=== PATIENT | male | born 1990 | race Caucasian/White ===

== ENCOUNTER 2019-08-03 22:11 | Emergency (ER) | payer BC, MEDICAID ==
--- NOTE | 2019-08-03 22:39 | EDM.PDOC ---
ED HPI GENERAL MEDICAL PROBLEM - General Stated Complaint: LEFT THUMB Time Seen by Provider: 08/03/19 22:15 Source of Information: Reports: Patient History Limitations: Reports: No Limitations - History of Present Illness INITIAL COMMENTS - FREE TEXT/NARRATIVE: pt c/o pain and swelling at left thumb, states he jammed his finger with his shot gun about 2 weeks ago and for the past 5 days has been notining pain and swelling at tip of his thump , pt denies any fever or chills or any other associated sx or concerns. ED ROS GENERAL - Review of Systems Review Of Systems: See Below Constitutional: Reports: No Symptoms Respiratory: Reports: No Symptoms Cardiovascular: Reports: No Symptoms GI/Abdominal: Reports: No Symptoms ED EXAM, GENERAL - Physical Exam Exam: See Below Exam Limited By: No Limitations General Appearance: Alert, No Apparent Distress Respiratory/Chest: No Respiratory Distress, Lungs Clear Cardiovascular: Normal Peripheral Pulses, Regular Rate, Rhythm, No Murmur Extremities: Other (pt has induration / tenderness and swelling at mary side of the tip of left thump . ) Course - Vital Signs Text/Narrative:: pt has cellulitis at his left thump, was given 1 gm of Rocephin IM here and started on augmenting x 10 days, pt to apply warm compresses at affected area and follow with PCP in 2 days for re-check. Departure - Departure Time of Disposition: 22:37 Disposition: Home, Self-Care 01 Clinical Impression: Cellulitis of finger of left hand - Discharge Information Referrals: Delvis Conway MD [Primary Care Provider] - Additional Instructions: apply warm compresses to affected area, complete antibiotic course and follow with your physician in 2 days for re-check.
[2019-08-03] MEDS: cefTRIAXone 1 GM Vial IM ONE (22:47)
== END 2019-08-03 23:05 | disposition home or self-care (01) ==
LOC: FB.ED 22:11
DX: L03.012 Cellulitis of left finger (principal)
CPT/HCPCS: 96372; 99283; J0696

== ENCOUNTER 2023-02-28 15:43 | Emergency (ER) | payer OTHER ==
[2023-02-28] MEDS ORDERED: Acetaminophen/HYDROcodone 325-5 MG Tab PO ONE (15:44)
[2023-02-28] MEDS ORDERED: HYDROmorphone 2 MG/ML SDV IM ONE ×3 (15:53→17:40)
== END 2023-02-28 18:56 | disposition home or self-care (01) ==
LOC: FB.ED 15:43
DX: S42.152A Displaced fracture of neck of scapula, left shoulder, initial encounter for closed fracture (principal); S22.42XA Multiple fractures of ribs, left side, initial encounter for closed fracture; S27.0XXA Traumatic pneumothorax, initial encounter; S27.321A Contusion of lung, unilateral, initial encounter; S50.02XA Contusion of left elbow, initial encounter; S60.222A Contusion of left hand, initial encounter; V29.99XA Rider (driver) (passenger) of other motorcycle injured in unspecified traffic accident, initial encounter; Y92.410 Unspecified street and highway as the place of occurrence of the external cause
CPT/HCPCS: 73030; 73080; 73130; 73200; 96372; 99284; J1170